=== PATIENT | female | born 2000 | race Caucasian/White ===

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

== ENCOUNTER 2021-05-29 09:58 | Emergency (ER) | payer BC, OTHER ==
--- NOTE | 2021-05-29 11:05 | EDM.PDOC ---
ED HPI GENERAL MEDICAL PROBLEM - General Chief Complaint: Back Pain or Injury Stated Complaint: BACK INJURY Time Seen by Provider: 05/29/21 11:05 - History of Present Illness INITIAL COMMENTS - FREE TEXT/NARRATIVE: 21-year-old patient presents to the emergency room with back pain. 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 The patient did not fall did not feel anything go snap or pop. She tried 2 ibuprofen yesterday with minimal improvement. She has not tried anything other than the 2 ibuprofen. She has not developed any loss of bowel or bladder control she has no pain extending into her legs her pain seems to be in the low back region. She denies any abdominal pain. She denies any other injury as sociated with this most unfortunate event. Back Pain Score (Numeric/FACES): 5 - Related Data Allergies Allergy/AdvReac Type Severity Reaction Status Date / Time No Known Allergies Allergy Verified 05/29/21 10:06 Home Meds: Home Meds Naproxen [Naprosyn] 500 mg PO BID #30 tablet 05/29/21 [Rx] Orphenadrine [Norflex] 100 mg PO ASDIRECTED #10 tab 05/29/21 [Rx] Past Medical History - Past Health History Medical/Surgical History: Denies Medical/Surgical History Social & Family History - Tobacco Use Tobacco Use Status *Q: Never Tobacco User Second Hand Smoke Exposure: No - Caffeine Use Caffeine Use: Reports: Coffee, Energy Drinks, Soda - Recreational Drug Use Recreational Drug Use: No - Living Situation & Occupation Living situation: Reports: Single Occupation: Employed ED ROS GENERAL - Review of Systems Review Of Systems: See Below Constitutional: Reports: No Symptoms Respiratory: Reports: No Symptoms Cardiovascular: Reports: No Symptoms GI/Abdominal: Reports: No Symptoms : Reports: No Symptoms Musculoskeletal: Reports: Back Pain, Muscle Pain (In her low back). Denies: Leg Pain, Foot Pain Skin: Reports: No Symptoms Neurological: Reports: No Symptoms ED EXAM, GENERAL - Physical Exam Exam: See Below Exam Limited By: No Limitations General Appearance: Alert, No Apparent Distress Head: Atraumatic, Normocephalic Neck: Normal Inspection, Supple, Non-Tender, Full Range of Motion. No: Limited Range of Motion, Lymphadenopathy (L), Lymphadenopathy (R), Tender Lateral, Tender Midline Respiratory/Chest: No Respiratory Distress, Lungs Clear, Normal Breath Sounds Cardiovascular: Regular Rate, Rhythm, No Edema, No Murmur GI/Abdominal: Normal Bowel Sounds, Soft, Non-Tender Back Exam: Normal Inspection, Muscle Spasm (Noticeable paraspinous muscle spasm in the lumbar area bilaterally extending into the lower thoracic area. Distracted straight leg raises are normal). No: Vertebral Tenderness Neurological: Alert, Oriented, Normal Cognition, Other. No: Sensory/Motor Deficit Psychiatric: Normal Affect, Normal Mood Skin Exam: Warm, Dry, Intact Course - Vital Signs Last Recorded V/S: Last Vital Signs Temp 36.4 C 05/29/21 11:13 Pulse 65 05/29/21 11:13 Resp 16 05/29/21 11:13 BP 147/85 H 05/29/21 11:13 Pulse Ox 99 05/29/21 11:13 - Orders/Labs/Meds Orders: Active Orders 24 hr Category Date Time Status Orphenadrine [Norflex] Med 05/29/21 11:20 Active 100 mg PO BID Medication Orders Orphenadrine Citrate (Orphenadrine 100 Mg Tab.Er) 100 mg PO BID [facility] Meds: Medications Generic Name Dose Route Start Last Admin Trade Name Freq PRN Reason Stop Dose Admin Orphenadrine Citrate 100 mg 05/29/21 11:20 Orphenadrine 100 Mg Tab.Er PO BID [facility] - Re-Assessments/Exams Free Text/Narrative Re-Assessment/Exam: 05/29/21 11:21 Patient assures me she is not and there is no possibility. We will start her on Norflex twice daily today and then nightly thereafter and started on naproxen. Departure - Departure Time of Disposition: :22 Disposition: Home, Self-Care 01 Clinical Impression: Lumbar strain - Discharge Information Prescriptions: Naproxen [Naprosyn] 500 mg PO BID #30 tablet Orphenadrine [Norflex] 100 mg PO ASDIRECTED #10 tab Referrals: PCP,Not In Area [Primary Care Provider] - Forms: ED Department Discharge, ED Return to Work/School Form Additional Instructions: Return to the emergency room with any questions problems or worsening symptoms. Follow-up with your regular healthcare provider or here at the hospital clinic at the end of this week for recheck if needed. You been started on 2 medications the first 1 is Naprosyn take it twice daily with meals. The second 1 is Norflex this is a muscle relaxant take 1 every evening. Both of these have been sent electronically to [facility] pharmacy up on [address] by [place]. Sepsis Event Note (ED) - Focused Exam Vital Signs: Vital Signs Temp Pulse Resp BP Pulse Ox 05/29/21 11:13 36.4 C 65 16 147/85 H 99 05/29/21 10:04 36.7 C 87 18 137/77 100 - My Orders Last 24 Hours: My Active Orders 05/29/21 11:20 Orphenadrine [Norflex] 100 mg PO BID - Assessment/Plan Last 24 Hours: My Active Orders 05/29/21 11:20 Orphenadrine [Norflex] 100 mg PO BID
[2021-05-29 11:14] VITALS: BP 147/85; PULSE 65
[2021-05-29] MEDS ORDERED: Orphenadrine 100 MG Tab.ER PO SCH (11:20)
== END 2021-05-29 11:40 | disposition home or self-care (01) ==
LOC: JD.ED 09:58
DX: S39.012A Strain of muscle, fascia and tendon of lower back, initial encounter (principal); X50.0XXA Overexertion from strenuous movement or load, initial encounter; Y92.89 Other specified places as the place of occurrence of the external cause; Y99.0 Civilian activity done for income or pay
CPT/HCPCS: 99283; A9270